=== PATIENT | male | born 1960 | race Caucasian/White ===

== ENCOUNTER 2019-11-28 06:27 | Emergency (ER) | payer OTHER ==
[~2019-11-28] VITALS: Ht 180.3 cm; Wt 90.7 kg
[~2019-11-28 06:27] MED LIST: KEFLEX500 MG PO; MONISTAT SOOTHI42 GM TOP; ONDANSETRON ODT4 MG PO; SULFAMETHOXAZO1 EAC1 PO; TRAMADOL HCL50 MG PO; ZOFRAN ODT4 MG PO
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
== END 2019-11-28 09:21 | disposition home or self-care (01) ==
LOC: ED 06:27
DX: S01.01XA Laceration without foreign body of scalp, initial encounter (principal); Y04.8XXA Assault by other bodily force, initial encounter
CPT/HCPCS: 12002; 70450; 99284-25